=== PATIENT | female | born 1995 | race Caucasian/White ===

== ENCOUNTER 2017-07-20 15:57 | Inpatient (IN) | payer MEDICAID ==
[2017-07-20] MEDS ORDERED: Ampicillin 2 GM in Sodium Chloride 0.9% 100 ML IV ONE (17:00)
[2017-07-20] MEDS ORDERED: Nalbuphine 20 MG/1 ML Amp IVPUSH PRN (17:00)
[2017-07-20] MEDS ORDERED: Sodium Chloride 0.9% 10 ML Syringe FLUSH PRN (17:00)
[2017-07-20] MEDS ORDERED: Ondansetron 4 MG/2 ML SDV IVPUSH PRN ×2 (17:00→23:59)
[2017-07-20] MEDS ORDERED: Lidocaine 1% 50 ML MDV INJECT ONE (17:00)
[2017-07-20] MEDS ORDERED: Lactated Ringers 1,000 ML ONE (17:15)
--- NOTE | 2017-07-20 17:36 | PCM.LDHP ---
<Isabel Avitia - Last Filed: 07/20/17 18:29> L&D History of Present Illness - General Date of Service: 07/20/17 Admit Problem/Dx: Patient Status Order with Admit Dx/Problem 07/20/17 17:01 Patient Status [ADT] Routine Admission Diagnosis/Problem Admission Diagnosis/Problem Normal labor 07/20/17 17:31 The patient is a 21-yo female G1PO who is 39 6/7 weeks. She presented in clinic today with spontaneous ruptured membranes. She was leaking fluid for 2 days prior to being seen in clinic. She denies fever, chills, nausea, or vomiting. She is feeling well overall. She can feel contractions, but they are tolerable. 07/20/17 18:12 Source of Information: Patient, Provider History Limitations: Reports: No Limitations - Related Data Allergies/Adverse Reactions: Allergies Allergy/AdvReac Type Severity Reaction Status Date / Time No Known Allergies Allergy Verified 07/20/17 17:14 H&P Review of Systems - Review of Systems: Review Of Systems: See Below (The patient is feeling well.) General: Reports: No Symptoms HEENT: Reports: No Symptoms Pulmonary: Reports: No Symptoms Cardiovascular: Reports: No Symptoms Gastrointestinal: Reports: No Symptoms Genitourinary: Reports: No Symptoms Musculoskeletal: Reports: No Symptoms Skin: Reports: No Symptoms Psychiatric: Reports: No Symptoms Neurological: Reports: No Symptoms Hematologic/Lymphatic: Reports: No Symptoms Immunologic: Reports: No Symptoms L&D Exam - Exam Exam: See Below (The patient presents with normal labor progression.) - Vital Signs Vital Signs: BP 102/76 HR 84 Weight: 82.01 kg - OB Specific Fundal Height In cm: 39 Contraction Duration (sec): Variable Contraction Frequency (min): every 3 minutes Contraction Intensity: Mild Movement: Active Heart Tones: Present Heart Tones per Min: 163 Heart Rate (FHR) Variability: Moderate (6-25 bmp) Presentation: Not obtained Estimated Weight: Not obtained - Langford Score Langford Score Cervix Position: Midposition Langford Score Consistency: Soft Langford Score Effacement: 51-70% Langford Score Dilation: 1-2 cm Langford Score Infant's Station: -3 Langford Score Total: 6 - Exam General: Alert, Oriented, Cooperative Neck: Supple Lungs: Clear to Auscultation, Normal Respiratory Effort Cardiovascular: Regular Rate, Regular Rhythm Rectal Exam: Deferred Genitourinary: Deferred, Other (2/70/-3) Back Exam: Normal Inspection Extremities: No Pedal Edema Skin: Warm, Dry Psychiatric: Alert, Normal Mood - Patient Data Result Diagrams: 07/20/17 17:30 Problem List Initiated/Reviewed/Updated: Yes Orders Last 24hrs: Active Orders 24 hr Category Date Time Status Patient Status [ADT] Routine ADT 07/20/17 17:01 Active Activity as Tolerated [RC] PFP Care 07/20/17 17:01 Active Communication Order [RC] ASDIRECTED Care 07/20/17 17:01 Active Heart Tones [RC] ASDIRECTED Care 07/20/17 17:03 Active Notify Provider [RC] PFP Care 07/20/17 17:01 Active Notify Provider [RC] PRN Care 07/20/17 17:01 Active Peripheral IV Care [RC] . DIRECTED Care 07/20/17 17:03 Active Pump Management, Intrathecal [RC] ASDIRECTED Care 07/20/17 17:05 Active Vital Signs [RC] PER UNIT ROUTINE Care 07/20/17 17:01 Active Regular Diet [DIET] Diet 07/20/17 Dinner Active CBC WITH AUTO DIFF [HEME] Stat Lab 07/20/17 17:00 Ordered Ampicillin 1 gm Med 07/20/17 23:00 Active Sodium Chloride 0.9% [Normal Saline] 100 ml IV Q4H Lactated Ringers [Ringers, Lactated] 1,000 ml Med 07/20/17 17:00 Active IV ASDIRECTED Nalbuphine [Nubain] Med 07/20/17 17:00 Active 10 mg IVPUSH Q2H PRN Ondansetron [Zofran] Med 07/20/17 17:00 Active 4 mg IVPUSH Q4H PRN Sodium Chloride 0.9% [Saline Flush] Med 07/20/17 17:00 Active 10 ml FLUSH ASDIRECTED PRN Electronic Heart Tones Ext w TOCO [WOMSER] Oth 07/20/17 17:01 Ordered Routine Electronic Heart Tones Internal [WOMSER] Per Unit Oth 07/20/17 17:01 Ordered Routine Peripheral IV Insertion Adult [OM.PC] Routine Ot 07/20/17 17:01 Ordered Resuscitation Status Routine Resus Stat 07/20/17 17:00 Ordered Medication Orders Ampicillin Sodium 1 gm/ Sodium (Chloride) 100 mls @ 200 mls/hr IV Q4H ELICIA Lactated Ringer's (Ringers, Lactated) 1,000 mls @ 100 mls/hr IV ASDIRECTED ELICIA Nalbuphine HCl (Nubain) 10 mg IVPUSH Q2H PRN PRN Reason: Pain (moderate 4-6) Ondansetron HCl (Zofran) 4 mg IVPUSH Q4H PRN PRN Reason: Nausea/Vomiting Sodium Chloride (Saline Flush) 10 ml FLUSH ASDIRECTED PRN PRN Reason: Keep Vein Open Assessment/Plan Comment:: Start abx per group B strep +. Continue to monitor movement and labor pattern. Patient is encouraged to walk around, take a bath, etc. Will likely begin Pitocin this evening. <Ronnie Hilton F - Last Filed: 07/21/17 02:19> L&D History of Present Illness - General Admit Problem/Dx: Patient Status Order with Admit Dx/Problem 07/20/17 17:01 Patient Status [ADT] Routine Admission Diagnosis/Problem Admission Diagnosis/Problem Normal labor L&D Exam - Vital Signs Vital Signs: Last Vital Signs Temp 36.9 C 07/21/17 00:17 Pulse 82 07/21/17 00:17 Resp 16 07/21/17 00:17 BP 106/52 L 07/21/17 00:17 Pulse Ox 98 07/21/17 00:17 - Patient Data Lab Results Last 24 hrs: Laboratory Results - last 24 hr 07/20/17 Range/Units 17:30 WBC 12.87 H (3.98-10.04) K/mm3 RBC 4.34 (3.98-5.22) M/mm3 Hgb 13.1 (11.2-15.7) gm/L Hct 38.8 (34.1-44.9) % MCV 89.4 (79.4-94.8) fl MCH 30.2 (25.6-32.2) pg MCHC 33.8 (32.2-35.5) g/dl RDW Std Deviation 41.7 (36.4-46.3) fL Plt Count 210 (182-369) K/mm3 MPV 9.9 (9.4-12.3) fl Neut % (Auto) 69.4 (34.0-71.1) % Lymph % (Auto) 22.7 (19.3-51.7) % [place] % (Auto) 6.4 (4.7-12.5) % Eos % (Auto) 0.5 L (0.7-5.8) Baso % (Auto) 0.2 (0.1-1.2) % Neut # (Auto) 8.94 H (1.56-6.13) K/mm3 Lymph # (Auto) 2.92 (1.18-3.74) K/mm3 [place] # (Auto) 0.82 H (0.24-0.36) K/mm3 Eos # (Auto) 0.07 (0.04-0.36) K/mm3 Baso # (Auto) 0.02 (0.01-0.08) K/mm3 Result Diagrams: 07/20/17 17:30 Orders Last 24hrs: Active Orders 24 hr Category Date Time Status Patient Status [ADT] Routine ADT 07/20/17 17:01 Active Activity as Tolerated [RC] PFP Care 07/20/17 17:01 Active Communication Order [RC] ASDIRECTED Care 07/20/17 17:01 Active Notify Provider [RC] ASDIRECTED Care 07/20/17 23:59 Active Notify Provider [RC] PFP Care 07/20/17 17:01 Active Notify Provider [RC] PRN Care 07/20/17 17:01 Active Oxygen Therapy [RC] ASDIRECTED Care 07/20/17 23:59 Active Pulse Oximetry [RC] ASDIRECTED Care 07/20/17 23:59 Active Vital Signs [RC] PER UNIT ROUTINE Care 07/20/17 17:01 Active Regular Diet [DIET] Diet 07/20/17 Dinner Active Ampicillin 1 gm Med 07/20/17 23:00 Active Sodium Chloride 0.9% [Normal Saline] 100 ml IV Q4H Bupivacaine/fentaNYL/NS [fentaNYL/Bupivacaine/NS 2 MCG- Med 07/21/17 00:00 Active 0.125% 100 ML] 100 ml EPIDUR ASDIRECTED Lactated Ringers [Ringers, Lactated] 1,000 ml Med 07/20/17 17:00 Active IV ASDIRECTED Nalbuphine [Nubain] Med 07/20/17 17:00 Active 10 mg IVPUSH Q2H PRN Ondansetron [Zofran] Med 07/20/17 23:59 Active 4 mg IVPUSH ONETIME PRN Ondansetron [Zofran] Med 07/20/17 17:00 Active 4 mg IVPUSH Q4H PRN Oxytocin/Lactated Ringers [Pitocin in LR 10 Units/1,000 Med 07/20/17 20:00 Active ML] 10 unit in 1,000 ml IV ASDIRECTED Oxytocin/Lactated Ringers [Pitocin in LR 10 Units/1,000 Med 07/20/17 20:00 Active ML] 10 unit in 1,000 ml IV TITRATE Sodium Chloride 0.9% [Saline Flush] Med 07/20/17 17:00 Active 10 ml FLUSH ASDIRECTED PRN ePHEDrine [ePHEDrine Sulfate] Med 07/20/17 23:59 Active 5 mg IVPUSH ASDIRECTED PRN fentaNYL [Sublimaze] Med 07/20/17 23:59 Active 100 mcg EPIDUR Q3H PRN Electronic Heart Tones Ext w TOCO [WOMSER] Oth 07/20/17 17:01 Ordered Routine Electronic Heart Tones Internal [WOMSER] Per Unit Oth 07/20/17 17:01 Ordered Routine Peripheral IV Insertion Adult [OM.PC] Routine Oth 07/20/17 17:01 Ordered Resuscitation Status Routine Resus Stat 07/20/17 17:00 Ordered Medication Orders Ephedrine Sulfate (Ephedrine Sulfate) 5 mg IVPUSH ASDIRECTED PRN PRN Reason: Hypotension Last Admin: 07/21/17 01:14 Dose: 5 mg Fentanyl (Sublimaze) 100 mcg EPIDUR Q3H PRN PRN Reason: Pain Last Admin: 07/21/17 00:13 Dose: 100 mcg Fentanyl/Bupivacaine HCl (Fentanyl/Bupivacaine/Ns 2 Mcg-0.125% 100 Ml) 100 ml EPIDUR ASDIRECTED ELICIA Last Admin: 07/21/17 00:13 Dose: 100 ml Ampicillin Sodium 1 gm/ Sodium (Chloride) 100 mls @ 200 mls/hr IV Q4H ELICIA Last Admin: 07/20/17 23:05 Dose: 200 mls/hr Lactated Ringer's (Ringers, Lactated) 1,000 mls @ 100 mls/hr IV ASDIRECTED ELICIA Last Admin: 07/21/17 00:58 Dose: 150 mls/hr Infusion: 07/21/17 00:58 Dose: 500 mls/hr Admin: 07/20/17 23:56 Dose: 500 mls/hr Infusion: 07/20/17 20:00 Dose: 500 mls/hr Admin: 07/20/17 18:01 Dose: 100 mls/hr Oxytocin/Lactated Ringer's (Pitocin In Lr 10 Units/1,000 Ml) 10 unit in 1,000 mls @ 12 mls/hr IV TITRATE ELICIA; 2 MUNITS/MIN PRN Reason: Protocol Last Titration: 07/21/17 00:55 Dose: 6 munits/min, 36 mls/hr Titration: 07/20/17 23:03 Dose: 8 munits/min, 48 mls/hr Titration: 07/20/17 21:47 Dose: 6 munits/min, 36 mls/hr Titration: 07/20/17 21:14 Dose: 4 munits/min, 24 mls/hr Admin: 07/20/17 20:09 Dose: 2 munits/min, 12 mls/hr Oxytocin/Lactated Ringer's (Pitocin In Lr 10 Units/1,000 Ml) 10 unit in 1,000 mls @ 500 mls/hr IV ASDIRECTED ELICIA Nalbuphine HCl (Nubain) 10 mg IVPUSH Q2H PRN PRN Reason: Pain (moderate 4-6) Ondansetron HCl (Zofran) 4 mg IVPUSH Q4H PRN PRN Reason: Nausea/Vomiting Ondansetron HCl (Zofran) 4 mg IVPUSH ONETIME PRN PRN Reason: Nausea/Vomiting Sodium Chloride (Saline Flush) 10 ml FLUSH ASDIRECTED PRN PRN Reason: Keep Vein Open Assessment/Plan Comment:: Assessment: 1. Term intrauterine at 40 weeks gestation, spontaneous rupture membranes in early labor 2. Group B strep positive status 3. Patient plans to nurse 4. Patient desires epidural Plan: 1. Anticipate normal spontaneous vaginal delivery 2. Pitocin augmentation as indicated 3. Epidural per patient desire 4. Group B strep prophylaxis per protocol using ampicillin 5. Support breast-feeding 6. CBC
[2017-07-20] MEDS: Lactated Ringers 1,000 ML IV SCH ×2 (18:01→23:56)
[2017-07-20] MEDS ORDERED: Oxytocin/Lactated Ringers 10 UNIT/1,000 ML BAG IV SCH ×2 (20:00)
[2017-07-20] MEDS: Ampicillin 1 GM in Sodium Chloride 0.9% 100 ML IV SCH (23:05)
[2017-07-20] MEDS ORDERED: fentaNYL 100 MCG/2 ML SDV EPIDUR PRN (23:59)
--- NOTE | 2017-07-21 00:02 | PCM.PREANE ---
Preanesthetic Assessment - Anesthesia/Transfusion/Family Hx Anesthesia History: No Prior Anesthesia Family History of Anesthesia Reaction: No Transfusion History: No Prior Transfusion(s) Intubation History: Unknown - Review of Systems General: No Symptoms Pulmonary: No Symptoms (smokes 1/2 pack times 9 yrs) Cardiovascular: No Symptoms Gastrointestinal: No Symptoms Neurological: No Symptoms Other: Reports: None - Physical Assessment NPO Status Date: 07/20/17 NPO Status Time: 18:00 Pulse: 82 O2 Sat by Pulse Oximetry: 98 Respiratory Rate: 16 Blood Pressure: 106/52 Temperature: 36.9 C Vital Signs: Last Vital Signs Temp 36.9 C 07/20/17 23:43 Pulse 68 07/20/17 23:43 Resp 16 07/20/17 23:43 BP 121/70 07/20/17 23:43 Pulse Ox 98 07/20/17 23:43 Height: 1.63 m Weight: 82.01 kg ASA Class: 2 Mental Status: Alert & Oriented x3 Airway Class: Mallampati = 2 Dentition: Reports: Normal Dentition (tongue piercing removed along with nose piercing), Caries Thyro-Mental Finger Breadths: 3 Mouth Opening Finger Breadths: 3 ROM/Head Extension: Full Lungs: Clear to Auscultation, Normal Respiratory Effort Cardiovascular: Regular Rate, Regular Rhythm, No Murmurs - Lab Values: Laboratory Last Values WBC 12.87 K/mm3 (3.98-10.04) H 07/20/17 17:30 RBC 4.34 M/mm3 (3.98-5.22) 07/20/17 17:30 Hgb 13.1 gm/L (11.2-15.7) 07/20/17 17:30 Hct 38.8 % (34.1-44.9) 07/20/17 17:30 MCV 89.4 fl (79.4-94.8) 07/20/17 17:30 MCH 30.2 pg (25.6-32.2) 07/20/17 17:30 MCHC 33.8 g/dl (32.2-35.5) 07/20/17 17:30 RDW Std Deviation 41.7 fL (36.4-46.3) 07/20/17 17:30 Plt Count 210 K/mm3 (182-369) 07/20/17 17:30 MPV 9.9 fl (9.4-12.3) 07/20/17 17:30 Neut % (Auto) 69.4 % (34.0-71.1) 07/20/17 17:30 Lymph % (Auto) 22.7 % (19.3-51.7) 07/20/17 17:30 [place] % (Auto) 6.4 % (4.7-12.5) 07/20/17 17:30 Eos % (Auto) 0.5 (0.7-5.8) L 07/20/17 17:30 Baso % (Auto) 0.2 % (0.1-1.2) 07/20/17 17:30 Neut # (Auto) 8.94 K/mm3 (1.56-6.13) H 07/20/17 17:30 Lymph # (Auto) 2.92 K/mm3 (1.18-3.74) 07/20/17 17:30 [place] # (Auto) 0.82 K/mm3 (0.24-0.36) H 07/20/17 17:30 Eos # (Auto) 0.07 K/mm3 (0.04-0.36) 07/20/17 17:30 Baso # (Auto) 0.02 K/mm3 (0.01-0.08) 07/20/17 17:30 Above labs reviewed and noted. - Allergies Allergies/Adverse Reactions: Allergies Allergy/AdvReac Type Severity Reaction Status Date / Time No Known Allergies Allergy Verified 07/20/17 17:14 - Anesthesia Plan Pre-Op Medication Ordered: None - Acknowledgements Anesthesia Type Planned: Epidural Pt an Appropriate Candidate for the Planned Anesthesia: Yes Alternatives and Risks of Anesthesia Discussed w Pt/Guardian: Yes Pt/Guardian Understands and Agrees with Anesthesia Plan: Yes PreAnesthesia Questionnaire [employer] History: Reports: Psychiatric History: Reports: Anxiety - SUBSTANCE USE Smoking Status *Q: Former Smoker Tobacco Use Within Last Twelve Months: Cigarettes Second Hand Smoke Exposure: Yes Recreational Drug Use History: No - CURRENT (IN HOUSE) MEDS Current Meds: Current Medications Ampicillin Sodium 1 gm/ Sodium (Chloride) 100 mls @ 200 mls/hr IV Q4H ELICIA Last Admin: 07/20/17 23:05 Dose: 200 mls/hr Lactated Ringer's (Ringers, Lactated) 1,000 mls @ 100 mls/hr IV ASDIRECTED ELICIA Last Admin: 07/20/17 23:56 Dose: 500 mls/hr Oxytocin/Lactated Ringer's (Pitocin In Lr 10 Units/1,000 Ml) 10 unit in 1,000 mls @ 12 mls/hr IV TITRATE ELICIA; 2 MUNITS/MIN PRN Reason: Protocol Last Titration: 07/20/17 23:03 Dose: 8 munits/min, 48 mls/hr Oxytocin/Lactated Ringer's (Pitocin In Lr 10 Units/1,000 Ml) 10 unit in 1,000 mls @ 500 mls/hr IV ASDIRECTED ELICIA Nalbuphine HCl (Nubain) 10 mg IVPUSH Q2H PRN PRN Reason: Pain (moderate 4-6) Ondansetron HCl (Zofran) 4 mg IVPUSH Q4H PRN PRN Reason: Nausea/Vomiting Sodium Chloride (Saline Flush) 10 ml FLUSH ASDIRECTED PRN PRN Reason: Keep Vein Open Discontinued Medications Ampicillin Sodium 2 gm/ Sodium (Chloride) 100 mls @ 200 mls/hr IV ONETIME ONE Stop: 07/20/17 17:29 Last Admin: 07/20/17 18:01 Dose: 200 mls/hr Lactated Ringer's (Ringers, Lactated) Confirm Administered Dose 1,000 mls @ as directed .ROUTE .STK-MED ONE Stop: 07/20/17 17:16 Last Admin: 07/20/17 19:46 Dose: Not Given Lidocaine HCl (Xylocaine 1%) 10 ml INJECT ONETIME ONE Stop: 07/20/17 17:01
[2017-07-21] MEDS: Bupivacaine/fentaNYL/NS 100 ML Bag EPIDUR SCH ×2 (00:13→09:14)
[2017-07-21] MEDS: Lactated Ringers 1,000 ML IV SCH ×3 (00:58→06:24)
[2017-07-21] MEDS: ePHEDrine 50 MG/ML SDV IVPUSH PRN ×2 (01:14→02:02)
[2017-07-21] MEDS: Ampicillin 1 GM in Sodium Chloride 0.9% 100 ML IV SCH ×3 (03:04→10:59)
--- NOTE | 2017-07-21 09:33 | PCM.PNLD ---
Labor Progress Note - VS & Meds Vital Signs: Last Vital Signs Temp 98.4 F 07/21/17 00:17 Pulse 82 07/21/17 00:17 Resp 16 07/21/17 00:17 BP 106/52 L 07/21/17 00:17 Pulse Ox 98 07/21/17 00:17 Active Medications: Current Medications Ephedrine Sulfate (Ephedrine Sulfate) 5 mg IVPUSH ASDIRECTED PRN PRN Reason: Hypotension Last Admin: 07/21/17 02:02 Dose: 5 mg Fentanyl (Sublimaze) 100 mcg EPIDUR Q3H PRN PRN Reason: Pain Last Admin: 07/21/17 00:13 Dose: 100 mcg Fentanyl/Bupivacaine HCl (Fentanyl/Bupivacaine/Ns 2 Mcg-0.125% 100 Ml) 100 ml EPIDUR ASDIRECTED ELICIA Last Admin: 07/21/17 09:14 Dose: 100 ml Ampicillin Sodium 1 gm/ Sodium (Chloride) 100 mls @ 200 mls/hr IV Q4H ELICIA Last Admin: 07/21/17 06:24 Dose: 200 mls/hr Lactated Ringer's (Ringers, Lactated) 1,000 mls @ 100 mls/hr IV ASDIRECTED ELICIA Last Admin: 07/21/17 06:24 Dose: 100 mls/hr Oxytocin/Lactated Ringer's (Pitocin In Lr 10 Units/1,000 Ml) 10 unit in 1,000 mls @ 12 mls/hr IV TITRATE ELICIA; 2 MUNITS/MIN PRN Reason: Protocol Last Titration: 07/21/17 08:51 Dose: 10 munits/min, 60 mls/hr Oxytocin/Lactated Ringer's (Pitocin In Lr 10 Units/1,000 Ml) 10 unit in 1,000 mls @ 500 mls/hr IV ASDIRECTED ELICIA Nalbuphine HCl (Nubain) 10 mg IVPUSH Q2H PRN PRN Reason: Pain (moderate 4-6) Ondansetron HCl (Zofran) 4 mg IVPUSH Q4H PRN PRN Reason: Nausea/Vomiting Ondansetron HCl (Zofran) 4 mg IVPUSH ONETIME PRN PRN Reason: Nausea/Vomiting Sodium Chloride (Saline Flush) 10 ml FLUSH ASDIRECTED PRN PRN Reason: Keep Vein Open Discontinued Medications Ampicillin Sodium 2 gm/ Sodium (Chloride) 100 mls @ 200 mls/hr IV ONETIME ONE Stop: 07/20/17 17:29 Last Admin: 07/20/17 18:01 Dose: 200 mls/hr Lactated Ringer's (Ringers, Lactated) Confirm Administered Dose 1,000 mls @ as directed .ROUTE .STK-MED ONE Stop: 07/20/17 17:16 Last Admin: 07/20/17 19:46 Dose: Not Given Lidocaine HCl (Xylocaine 1%) 10 ml INJECT ONETIME ONE Stop: 07/20/17 17:01 - Uterine Contractions Contraction Frequency (min): every 3 minutes Contraction Duration (sec): Variable Contraction Intensity: Mild - Monitoring Heart Rate (FHR) Variability: Moderate (6-25 bmp) - Vaginal Exam Dilation (cm): 9 Effacement (Percent): 90 Station: -1 Sterile Vaginal Exam Performed By: Ronnie Hilton - Labor Progress (Free Text) Labor Progress: The patient is G1PO and 40 weeks gestation. She was able to sleep during the night. Epidural is in place. The patient reports cramping and increased pressure. She is dilated to 90 cm, 90% effaced, soft, mid-position, and -1 station. Pitocin was stopped at 08:30. She received an IV fluid bolus. She has received 4 doses of Group B prophylaxis with ampicillin at this time. Contractions are 1-3 minutes apart at 09:40. She appears to be in a good labor pattern. Assessment: 1. Term intrauterine at 39 weeks gestation, spontaneous rupture membranes in early labor 2. Group B positive status Plan: 1. Anticipate normal spontaneous vaginal delivery 2. Continue ampicillin for Group B prophylaxis per protocol
--- NOTE | 2017-07-21 12:44 | PCM.SN ---
- Free Text/Narrative Note: Jaciel is a 21-year-old 1 now para 1001 white female who is admitted from clinic on the afternoon of 07/20/2017 with diagnosis of spontaneous rupture membranes. She reports leakage of fluid proxy 24-48 hours prior to that visit. She is admitted in labor and delivery after an amnisure return positive confirming SROM. She started in the labor was lali very mildly but because of the duration of the rupture membranes decision was made to augment labor with Pitocin. She was placed on Pitocin per protocol and made steady but slow progress. She became completely dilated by approximately 1030 hrs. on 07/21. She is group B strep positive and received ampicillin per IV as per protocol. Patient pushed for approximately 2 hours and delivered a viable, williamson, female infant weighing 3210 g (7 pounds 1.2 ounces), 20.5 inches in length and having scores 8 and 9. She delivered over an intact perineum in an OA position. Pitocin was started IV after delivery of the baby. The baby was placed on mom's abdomen, nose mouth were bulb suctioned. Cord was clamped 2 and cut by the father of the baby. Placenta delivered intact in a Garg presentation. The placenta was discarded per patient preference. There were 3 vessels to the umbilical cord. Estimated blood loss was approximately 100 mL. Patient plans to breast-feed. Condition: Good
[2017-07-21] MEDS ORDERED: Ibuprofen 600 MG Tab PO PRN (13:31)
[2017-07-21] MEDS ORDERED: Lanolin 100% Cream 7 GM Tube TOP PRN (13:31)
[2017-07-21] MEDS ORDERED: Acetaminophen 325 MG Tab PO PRN (13:31)
[2017-07-21] MEDS ORDERED: Docusate Sodium 100 MG Cap PO PRN (13:31)
[2017-07-21] MEDS ORDERED: Benzocaine/Menthol 20%-0.5% Spray 56 GM Canister TOP PRN (13:31)
[2017-07-21] MEDS ORDERED: Witch Hazel Medicated Pads 100/Jar TOP PRN (13:31)
--- NOTE | 2017-07-22 11:06 | PCM.DCSUM1 ---
Discharge Summary - Hospital Course Free Text/Narrative:: Jaciel is a 21-year-old 1 now para 1001 white female who is admitted from clinic on the afternoon of 07/20/2017 with diagnosis of spontaneous rupture membranes. She reports leakage of fluid proxy 24-48 hours prior to that visit. She is admitted in labor and delivery after an amnisure return positive confirming SROM. She started in the labor was lali very mildly but because of the duration of the rupture membranes decision was made to augment labor with Pitocin. She was placed on Pitocin per protocol and made steady but slow progress. She became completely dilated by approximately 1030 hrs. on 07/21. She is group B strep positive and received ampicillin per IV as per protocol. Patient pushed for approximately 2 hours and delivered a viable, williamson, female weighing 3210 g (7 pounds 1.2 ounces), 20.5 inches in length and having scores 8 and 9. She delivered over an intact perineum in an OA position. Pitocin was started IV after delivery of the baby. The baby was placed on mom's abdomen, nose mouth were bulb suctioned. Cord was clamped 2 and cut by the father of the baby. Placenta delivered intact in a Garg presentation. The placenta was discarded per patient preference. There were 3 vessels to the umbilical cord. Estimated blood loss was approximately 100 mL. Patient plans to breast-feed. Presently the patient is nursing well. She is ambulatory without problems and vital signs stable. She is afebrile. She is voiding without concerns. Labs include a white blood count of 10.8, hemoglobin is 11.9 and platelets are 159,000. Desiring to be discharged home. Pediatrics is planning to keep the baby until tomorrow. - Discharge Data Discharge Date: 07/22/17 Discharge Disposition: Home, Self-Care 01 Condition: Good - Patient Instructions Diet: Regular Diet as Tolerated (Nursing diet with increased calories and calcium as directed) Activity: As Tolerated (No intercourse or tampons until bleeding resolves.) Driving: May Drive Today Showering/Bathing: May Shower (May take a bath) Notify Provider of: Fever, Increased Pain, Swelling and Redness, Nausea and/or Vomiting - Discharge Plan Home Medications: Home Meds Vit W-Ca,Fe,FA(<1 mg) [ Vitamins] 1 tab PO DAILY 07/21/17 [ History] Ibuprofen [IJD: Ibuprofen] 600 mg PO Q4H PRN tablet 07/22/17 [Rx] Referrals: Ronnie Hilton MD [Physician] - [facility] - Discharge Summary/Plan Comment DC Time >30 min.: No Discharge Summary/Plan Comment: Discharge instructions: 1. Discharge home 2. Diet, activity and follow-up discussed with patient. Recommend nursing diet with increased calories and calcium. 3. Precautions given concern increased pain, bleeding, temperature, signs/ symptoms of DVT/PE. 4. Medications per home medication was printed, discussed with and given to the patient. 5. Return to clinic-Dr. Hilton[facility] in 2 weeks. Diagnosis: Term -delivered Condition: Good - Patient Data Vitals - Most Recent: Last Vital Signs Temp 36.2 C 07/22/17 05:26 Pulse 75 07/22/17 05:26 Resp 15 07/22/17 05:26 BP 121/71 07/22/17 05:26 Pulse Ox 99 07/21/17 21:03 Weight - Most Recent: 82.01 kg I&O - Last 24 hours: Intake & Output 07/21/17 07/22/17 07/22/17 22:59 06:59 14:59 Intake Total 0 Balance 0 Lab Results - Last 24 hrs: Laboratory Results - last 24 hr 07/22/17 Range/Units 06:10 WBC 10.80 H (3.98-10.04) K/mm3 RBC 3.91 L (3.98-5.22) M/mm3 Hgb 11.9 (11.2-15.7) gm/L Hct 35.1 (34.1-44.9) % MCV 89.8 (79.4-94.8) fl MCH 30.4 (25.6-32.2) pg MCHC 33.9 (32.2-35.5) g/dl RDW Std Deviation 41.7 (36.4-46.3) fL Plt Count 159 L (182-369) K/mm3 MPV 10.1 (9.4-12.3) fl Med Orders - Current: Current Medications Acetaminophen (Tylenol) 650 mg PO Q4H PRN PRN Reason: mild pain or fever Benzocaine/Menthol (Dermoplast Pain Relief [place]) 0 gm TOP ASDIRECTED PRN PRN Reason: Perineal Comfort Measure Last Admin: 07/22/17 08:47 Dose: 1 spray Docusate Sodium (Colace) 100 mg PO BID PRN PRN Reason: Constipation Emollient Ointment (Lansinoh Hpa) 0 gm TOP ASDIRECTED PRN PRN Reason: Sore Nipples Ibuprofen (Motrin) 600 mg PO Q4H PRN PRN Reason: Mild pain or fever Last Admin: 07/22/17 05:26 Dose: 600 mg [place] (Tucks) 1 pad TOP ASDIRECTED PRN PRN Reason: Hemorrhoid pain Last Admin: 07/22/17 08:46 Dose: 1 pad Discontinued Medications Ephedrine Sulfate (Ephedrine Sulfate) 5 mg IVPUSH ASDIRECTED PRN PRN Reason: Hypotension Last Admin: 07/21/17 02:02 Dose: 5 mg Fentanyl (Sublimaze) 100 mcg EPIDUR Q3H PRN PRN Reason: Pain Last Admin: 07/21/17 00:13 Dose: 100 mcg Fentanyl/Bupivacaine HCl (Fentanyl/Bupivacaine/Ns 2 Mcg-0.125% 100 Ml) 100 ml EPIDUR ASDIRECTED [facility] Last Admin: 07/21/17 09:14 Dose: 100 ml Ampicillin Sodium 2 gm/ Sodium (Chloride) 100 mls @ 200 mls/hr IV ONETIME ONE Stop: 07/20/17 17:29 Last Admin: 07/20/17 18:01 Dose: 200 mls/hr Ampicillin Sodium 1 gm/ Sodium (Chloride) 100 mls @ 200 mls/hr IV Q4H [facility] Last Admin: 07/21/17 10:59 Dose: 200 mls/hr Lactated Ringer's (Ringers, Lactated) 1,000 mls @ 100 mls/hr IV ASDIRECTED [facility] Last Admin: 07/21/17 06:24 Dose: 100 mls/hr Lactated Ringer's (Ringers, Lactated) Confirm Administered Dose 1,000 mls @ as directed .ROUTE .STK-MED ONE Stop: 07/20/17 17:16 Last Admin: 07/20/17 19:46 Dose: Not Given Oxytocin/Lactated Ringer's (Pitocin In Lr 10 Units/1,000 Ml) 10 unit in 1,000 mls @ 12 mls/hr IV TITRATE ELICIA; 2 MUNITS/MIN PRN Reason: Protocol Last Titration: 07/21/17 11:02 Dose: 4 munits/min, 24 mls/hr Oxytocin/Lactated Ringer's (Pitocin In Lr 10 Units/1,000 Ml) 10 unit in 1,000 mls @ 500 mls/hr IV ASDIRECTED ELICIA Last Infusion: 07/22/17 08:52 Dose: Infused Lidocaine HCl (Xylocaine 1%) 10 ml INJECT ONETIME ONE Stop: 07/20/17 17:01 Last Admin: 07/22/17 06:50 Dose: Not Given Nalbuphine HCl (Nubain) 10 mg IVPUSH Q2H PRN PRN Reason: Pain (moderate 4-6) Ondansetron HCl (Zofran) 4 mg IVPUSH Q4H PRN PRN Reason: Nausea/Vomiting Ondansetron HCl (Zofran) 4 mg IVPUSH ONETIME PRN PRN Reason: Nausea/Vomiting Sodium Chloride (Saline Flush) 10 ml FLUSH ASDIRECTED PRN PRN Reason: Keep Vein Open *Q Meaningful Use (DIS) - VTE *Q VTE Criteria *Q: - Stroke *Q Stroke Criteria *Q: - AMI *Q AMI Criteria *Q:
[2017-07-22] MEDS ORDERED: Measles, Mumps & Rubella Vaccine 0.5 ML SDV SUBCUT ONE (13:03)
== END 2017-07-22 13:30 | disposition home or self-care (01) | DRG 775 ==
LOC: JD.OB 15:57 → JD.OBCHECK 15:57 → JD.OB 17:01 → OBSVTOIN 07-21 12:17
PROVIDERS: ADMIT Obstetrics & Gynecology; ATTEND Obstetrics & Gynecology
PROC: 10E0XZZ Delivery of Products of Conception, External Approach (ICD-10-PCS; principal; 2017-07-21)
PROC: 00HU33Z Insertion of Infusion Device into Spinal Canal, Percutaneous Approach (ICD-10-PCS; 2017-07-21)
PROC: 3E0R3BZ Introduction of Anesthetic Agent into Spinal Canal, Percutaneous Approach (ICD-10-PCS; 2017-07-21)
PROC: 3E0234Z Introduction of Serum, Toxoid and Vaccine into Muscle, Percutaneous Approach (ICD-10-PCS; 2017-07-22)
DX: O42.12 Full-term premature rupture of membranes, onset of labor more than 24 hours following rupture (principal); Z37.0 Single live birth; Z3A.40 40 weeks gestation of pregnancy; O99.824 Streptococcus B carrier state complicating childbirth; Z23 Encounter for immunization
CPT/HCPCS: 36415; 51702; 59409; 85025; 85027; 90471; 90707; A9270-GY; J0290; J2590; J3010; J7030; J7120